=== PATIENT | male | born 1965 | race Caucasian/White ===

== ENCOUNTER → 2020-07-02 10:44 | Outpatient (BNVA) | payer OTHER, SELFPAY | PROVIDERS: Family Provider Family Medicine; PCP Family Medicine; Visit Provider Surgery | DX: K92.1 Melena (principal) | CPT/HCPCS: 87635 ==

== ENCOUNTER 2020-07-07 07:33 | Day surgery (SDC) | payer OTHER, SELFPAY ==
[2020-07-03 13:33] VITALS: BMI 36.0
--- NOTE | 2020-07-07 07:56 | ANES.PREANE2 ---
Pre-Anesthetic Assessment Pre-Anesthetic Assessment: Height/Weight: Height 1.78 m Weight 113.852 kg Proposed Procedure: Operation Date: 07/07/20 09:00 Proposed Procedures p Colonoscopy 41379 k92.1(Not Applicable) - Alfred Cantu MD Was Beta Simona taken within 24 hours: N/A Was Clonidine taken within 24 hours: N/A Social: Social History: No alcohol and No tobacco Exam: Pre-Anes Outpt Exam: alert, oriented x 3, clear to auscultation bilaterally and regular rate & rhythm Airway: Submandibular: WNL Cervical ROM: WNL MP: 2 History/ROS: No significant history except as noted Pulmonary: Pulmonary: Sleep apnea CV/HEM: CV/HEM: None reported : : None reported Hepatic: Hepatic: None reported GI: GI: None reported Metabolic: Metabolic: None reported Musc/skel: Musc/skel: None reported Neuropsych: Neuropsych: None reported Anesthetic Plan: ASA status: 2 Anesthesia: MAC PFSH Anesthesia PFSH: Medical History (Updated 06/19/20 @ 09:33 by Alfred Cantu MD) Hyperlipidemia Hypertension STEPHANIE (obstructive sleep apnea) Surgical History (Updated 06/19/20 @ 09:33 by Alfred Cantu MD) History of appendectomy 1984 History of hand surgery History of right inguinal hernia repair 2014 History of surgery on arm History of umbilical hernia repair Family History (Updated 06/19/20 @ 09:00 by Erika Stout) Mother Cancer Father Stroke Social History (Updated 06/19/20 @ 09:01 by Erika Stout) Smoking and tobacco status: never smoked Second hand smoke exposure: No Alcohol intake: never Lives independently: Yes Household members: spouse Data Anesthesia Cardiac Studies: No Data to Display
[2020-07-07 08:23] VITALS: BP 130/80; PULSE 79; RESP 18; TEMP 36.1; O2SAT 97
[2020-07-07] MEDS: sodium chloride 0.9% 1,000 ML 30 ML IV (08:38)
--- NOTE | 2020-07-07 09:04 | W.PM.OPSUD ---
Surgery/Procedure H&P Update DATE OF PROCEDURE: July 07, 2020 DATE H&P PERFORMED: 06/19/20 H&P UPDATE INFORMATION: I have reviewed H&P completed within last 30 days, I have examined patient prior to procedure and No changes to prior documentation PREOP DIAGNOSIS: diagnostic PLANNED PROCEDURE: Operation Date: 07/07/20 09:00 Proposed Procedures p Colonoscopy 85470 k92.1(Not Applicable) - Alfred Cantu MD
[2020-07-07 09:32] VITALS: BP 105/64; PULSE 77; RESP 16; TEMP 36.2; O2SAT 93
[2020-07-07 09:47] VITALS: BP 107/66; PULSE 72; RESP 16; TEMP 36.4; O2SAT 95
--- NOTE | 2020-07-07 11:37 | ANE.PACU2 ---
Inpatient post-anesthesia follow up: Airway intact: Yes Vital signs: Temperature 97.6 F Pulse Rate 72 Respiratory Rate 16 Blood Pressure 107/66 Pulse Oximetry 95 Oxygen Delivery Me thod Room Air Oxygen Flow Rate 2 Fraction of Inspir ed Oxygen Hydration adequate: Yes Nausea and vomiting: No Mental status: Baseline
--- NOTE | 2020-07-07 13:46 | ANE.PACU2 ---
Inpatient post-anesthesia follow up: Airway intact: Yes Vital signs: Temperature 97.6 F Pulse Rate 72 Respiratory Rate 16 Blood Pressure 107/66 Pulse Oximetry 95 Oxygen Delivery Me thod Room Air Oxygen Flow Rate 2 Fraction of Inspir ed Oxygen Hydration adequate: Yes Nausea and vomiting: No Pain level: 1 Mental status: Baseline
== END 2020-07-07 10:00 | disposition home or self-care (01) ==
PROVIDERS: PCP Family Medicine; Visit Provider Surgery
PROC: 0DJD8ZZ Inspection of Lower Intestinal Tract, Via Natural or Artificial Opening Endoscopic (ICD-10-PCS; CPT 45378; principal; 2020-07-07 09:00)
DX: K92.1 Melena (principal); K64.8 Other hemorrhoids; E78.5 Hyperlipidemia, unspecified; I10 Essential (primary) hypertension; G47.33 Obstructive sleep apnea (adult) (pediatric)
CPT/HCPCS: 45378; 96360; J2704; J7030

== ENCOUNTER → 2021-03-01 08:39 | Outpatient (BNVA) | payer OTHER, SELFPAY | PROVIDERS: PCP Family Medicine; Visit Provider Urology | DX: N50.819 Testicular pain, unspecified (principal) | CPT/HCPCS: 81003 ==

== ENCOUNTER → 2023-03-13 16:43 | Outpatient (BNVA) | payer OTHER, SELFPAY | PROVIDERS: PCP Family Medicine; Visit Provider Emergency Medicine | DX: M25.511 Pain in right shoulder (principal) | CPT/HCPCS: 73030 ==

== ENCOUNTER 2024-05-06 07:45 | Outpatient (CLI) | payer OTHER, SELFPAY ==
--- NOTE | 2024-05-06 07:50 | MM_ITS ---
WS: [id number] DIAGNOSTIC BILATERAL DIGITAL BREAST TOMOSYNTHESIS MAMMOGRAPHY WITH CAD LEFT breast ultrasound, limited HISTORY: MASS LEFT BREAST, male patient. COMPARISON: None available. TECHNIQUE: Bilateral craniocaudad, mediolateral oblique, and mediolateral views are submitted with tomosynthesis and SM. Spot compression LEFT CC and MLO. Computer aided detection utilized. Breast composition: The breasts are almost entirely fatty. Round, indistinct slightly high density mass present at 12:00 at a middle to posterior depth in the LEFT breast. Mass measures 8 x 10 x 12 mm. There is no calcification or distortion. As per history this mass has been present for 10 years. No additional abnormality within either breast. LEFT breast ultrasound, limited LEFT breast at 11:00, 2 cm from the nipple is the palpable abnormality which is hyperechoic with a central cystic area. Mass measures 1.5 x 1.5 x 0.8 cm. No shadowing or calcification. There is slight increased vascularity. MM/MM diag BI tomosynthesis [id number] IMPRESSION: BI-RADS: 4 - Suspicious Finding - Biopsy Should Be Considered. FOLLOW UP: Biopsy Recommended 1. Palpable LEFT breast mass is suspected to be a lipoma or an area of fat nec rosis based upon its appearance. As this mass is now painful and patient report s a change suggest ultrasound-guided biopsy to confirm malignancy or surgical e xcision.
== END 2024-05-06 07:46 | disposition home or self-care (01) ==
LOC: RAD 07:46
PROVIDERS: PCP Family Medicine; Visit Provider Family Medicine
DX: N63.20 Unspecified lump in the left breast, unspecified quadrant (principal); R92.312 Mammographic fatty tissue density, left breast; N63.25 Unspecified lump in the left breast, overlapping quadrants; N63.22 Unspecified lump in the left breast, upper inner quadrant
CPT/HCPCS: 76642; 77062; G0279

== ENCOUNTER 2024-06-05 12:08 | Outpatient (CLI) | payer OTHER, SELFPAY ==
--- NOTE | 2024-06-05 12:14 | US_ITS ---
WS: [id number] ULTRASOUND-GUIDED LEFT BREAST BIOPSY HISTORY: 59-year-old male, LEFT breast mass enlarging and painful. COMPARISON: 05/06/2024 Procedure, risks and complications are explained to the patient. Medications are reviewed. Consent is obtained. The mass in the LEFT breast is localized with ultrasound. Mass localized cyst at 11:00, 2 cm from the nipple. Skin is cleansed with ChloraPrep and anesthetized with 1% buffered lidocaine. Small dermatome is made. Under sterile conditions mass is biopsied with a 14-gauge Achieve needle. Multiple core biopsies are performed. Material placed in formalin and sent to pathology for review. No complications encountered. Breast tissue marker ([employer] ultrasound enhanced ribbon): Single. Patient left the radiology suite with no complications. Patient is instructed [place] [facility] [place] call with any concerns. US/[place] [id number] IMPRESSION: 1. Uncomplicated core needle biopsy LEFT breast mass at 11:00. PATHOLOGY: Pathology findings are most consistent with an angiolipoma. Please s ee the pathologist report. Focal fat necrosis is also present. RECOMMENDATION: Angiolipomas of the breasts are rare benign, noncancerous lesio ns. If this mass continues to cause pain and appears to increase in size surgic al excision can be obtained. Recommendation: Diagnostic LEFT mammogram in 6 months and possible ultrasound.
== END 2024-06-05 12:09 | disposition home or self-care (01) ==
LOC: RAD 12:10
PROVIDERS: PCP Family Medicine; Visit Provider Family Medicine
DX: N63.22 Unspecified lump in the left breast, upper inner quadrant (principal); R92.8 Other abnormal and inconclusive findings on diagnostic imaging of breast; N64.1 Fat necrosis of breast
CPT/HCPCS: 19083; 88305; J9999

== ENCOUNTER 2024-08-27 12:49 | Outpatient (CLI) | payer OTHER, SELFPAY ==
--- NOTE | 2024-08-27 12:45 | US_ITS ---
WS: [id number] ULTRASOUND RIGHT BREAST HISTORY: RIGHT breast mass. Prior biopsy. COMPARISON: 06/05/2024, 05/06/2024 TECHNIQUE: 2-D and Doppler. Hyperechoic mass is identified in the anterior RIGHT breast, 1 cm from the nipple. This is a hyperechoic mass that has undergone prior biopsy. There are 2 adjacent similar masses better noted on today's exam. The larger mass measures 1.2 x 1.6 x 1.0 cm. No increase in size. US/US breast RT limited* [id number] IMPRESSION: BI-RADS: 2- Benign FOLLOW-UP: See Report Hypoechoic mass has been previously biopsied. No additional imaging necessary. Surgical excision if mass is causing pain.
== END 2024-08-27 12:50 | disposition home or self-care (01) ==
LOC: RAD 12:52
PROVIDERS: PCP Family Medicine; Visit Provider Surgery
DX: L02.91 Cutaneous abscess, unspecified (principal); D17.9 Benign lipomatous neoplasm, unspecified; N63.10 Unspecified lump in the right breast, unspecified quadrant
CPT/HCPCS: 76642

== ENCOUNTER 2024-09-23 09:11 | Day surgery (SDC) | payer OTHER, SELFPAY ==
[2024-09-23] VITALS (11 sets, daily range): BP systolic 103–149; BP diastolic 65–102; PULSE 68–82; RESP 10–22; TEMP 36.3–36.8; O2SAT 93–100; BMI 33.7
[2024-09-23] MEDS: sodium chloride 0.9% 1,000 ML 30 ML IV (10:07)
--- NOTE | 2024-09-23 10:37 | ANES.PREANE2 ---
Pre-Anesthetic Assessment Height/Weight: Height 5 ft 10 in Weight 235 lb Temp Pulse Resp BP Pulse Ox O2 Del Method 97.3 F L 76 16 139/100 96 Room Air 09/23/24 09:40 09/23/24 09:40 09/23/24 09:40 09/23/24 09:40 09/23/24 09:40 09/23/24 09:40 Preop Diagnosis: Chest wall mass Operation Date: 09/23/24 11:25 Proposed Procedures p BILATERAL Excision subcutaneous Lesion on Chest(Bilateral) - Alex Mayfield MD Was Beta Simona taken within 24 hours: N/A Was Clonidine taken within 24 hours: N/A Last intake: Intake Last Liquid Date 09/22/24 Last Liquid Time 22:30 Last Solid Date 09/22/24 Last Solid Time 22:30 Social No alcohol and No tobacco Exam alert, oriented x 3, clear to auscultation bilaterally and regular rate & rhythm Airway Submandibular: within normal limits Cervical ROM: within normal limits Mallampati: Class III Comments: Comments: Very poor dentition, multiple missing teeth. Denies any loose. Large stover Anesthetic Plan ASA status: 3 Anesthesia: General Other: Patient states that he is very sensitive to anesthesia. Multiple procedures where he had difficulty breathing following anesthesia due to being too sleepy NPO since yesterday evening History of STEPHANIE, wears CPAP at home Patient takes tirzepatide for weight loss. States that he has lost over 30 pounds Denies any cardiac issues, preop BP 139/100 METs greater than 4 Plan for general anesthesia Medications/Allergies Home Medications ?Medication ?Instructions ?Recorded ?Confirmed ?Last Taken ?Type tirzepatide 2.5 mg/0.5 mL 2 mg SUBCUT Q7D 08/13/24 09/19/24 09/13/24 History subcutaneous pen injector (Mounjaro) Allergies Allergy/AdvReac Type Severity Reaction Status Date / Time No Known Allergies Allergy Verified 09/19/24 11:54 Current Medications Generic Name Dose Route Start Last Admin Trade Name Freq PRN Reason Stop Dose Admin Sodium Chloride 1,000 mls @ 30 mls/hr 09/23/24 09:45 09/23/24 10:07 Sodium Chloride 0.9% IV 09/24/24 09:44 30 mls/hr .Q24H QUYNH Administration PFSH Anesthesia Medical History Testalgia Hydrocele STEPHANIE (obstructive sleep apnea) Hypertension Hyperlipidemia Surgical History Status post colonoscopy (07/07/20) hemorrhoids: 10 years History of umbilical hernia repair History of surgery on arm History of appendectomy 1985 History of hand surgery History of right inguinal hernia repair 2014 Family History Mother Cancer Father Stroke Social History Smoking and tobacco/nicotine status: never used tobacco/nicotine Second hand smoke exposure: No Alcohol intake: never Substance/Drug Use: never Lives independently: Yes Household members: spouse
--- NOTE | 2024-09-23 11:27 | W.PM.OPSUD ---
Surgery/Procedure H&P Update DATE OF PROCEDURE: September 23, 2024 DATE H&P PERFORMED: 09/17/24 H&P UPDATE INFORMATION: I have reviewed H&P completed within last 30 days, I have examined patient prior to procedure, No changes to prior documentation, H&P is in [facility] EMR on date indicated and Risks and benefits of the procedure reviewed PREOP DIAGNOSIS: Chest wall mass PLANNED PROCEDURE: Operation Date: 09/23/24 11:25 Proposed Procedures p BILATERAL Excision subcutaneous Lesion on Chest(Bilateral) - Alex Mayfield MD
[2024-09-23] MEDS: ceFAZolin 2,000 mg SDV 2000 MG IVP (12:50)
[2024-09-23] MEDS: BUPivacaine 0.25% INJ 30 mL INJECTION (13:13)
[2024-09-23] MEDS: lidocaine-epi 1% 20 mL INJ INJECTION (13:14)
--- NOTE | 2024-09-23 13:15 | P.OP_ITS ---
Operative Report Date of procedure: September 23, 2024 Pre-op diagnosis: Bilateral chest subcutaneous lesion Post-op diagnosis: Same Post-op findings: There were 2 subcutaneous lesion of bilateral chest on the left side in the inner upper quadrant of the left breast area about 4 cm from the nipple. This wound measured about 1 x 1 cm. And on the right breast on the outer upper quadrant about 1 cm from the nipple measuring about 1 x 1 cm. Procedure done: Excision of subcutaneous mass of bilateral chest (breast) Specimens removed/disposition: Left chest mass, right chest mass Surgeon: Alex Mayfield MD Metal Casket Maker: [facility] OR Staff Estimated blood loss: 5 Complications: none apparent Brief History: 59-year-old male with history of bilateral breast lesions per ultrasound appear benign. I was asked to proceed with excision as lesions are painful. After discussion risk benefits documented. Note with side to proceed. Procedure: Patient was brought into the OR, he was placed in a supine position. General anesthesia was given. The chest was prepped and draped in usual sterile fashion and a timeout was conducted. On the areas previously marked I then proceeded to with additional markings on the left and right breast. I then started on the left breast, identified to javier area make a 2 cm incision that was deepened into the subcutaneous tissue I then identified lipomatous lesion that was circumferentially dissected and removed from the subcutaneous tissue using electrocautery. Specimen was passed, hemostasis was achieved. The wound was irrigated and local anesthesia was infiltrated. The wound was closed in layers using #3-0 Vicryl for the subcutaneous tissue #4-0 Monocryl for the skin. I then placed my attention to the right breast. identified to javier area make a 2 cm incision that was deepened into the subcutaneous tissue I then identified lipomatous lesion that was circumferentially dissected and removed from the subcutaneous tissue using electrocautery. Specimen was passed, hemostasis was achieved. The wound was irrigated and local anesthesia was infiltrated. The wound was closed in layers using #3-0 Vicryl for the subcutaneous tissue #4-0 Monocryl for the skin. Dermabond was applied on both wounds. At the end of the procedure all counts were correct the patient tolerated well the procedure was transferred to PACU in stable condition
--- NOTE | 2024-09-23 14:45 | ANE.PACU2 ---
Inpatient post-anesthesia follow up: Airway intact: Yes Vital signs: Temperature 97.8 F Pulse Rate 82 Respiratory Rate 16 Blood Pressure 141/86 Pulse Oximetry 97 Oxygen Delivery Me thod Room Air Oxygen Flow Rate 6 Fraction of Inspir ed Oxygen Hydration adequate: Yes Nausea and vomiting: No Pain level: 1 Mental status: Baseline
== END 2024-09-23 14:45 | disposition home or self-care (01) ==
PROVIDERS: PCP Family Medicine; Visit Provider Surgery
PROC: (CPT 11401; principal; 2024-09-23 11:15)
DX: D17.1 Benign lipomatous neoplasm of skin and subcutaneous tissue of trunk (principal); G47.33 Obstructive sleep apnea (adult) (pediatric); I10 Essential (primary) hypertension; E78.5 Hyperlipidemia, unspecified
CPT/HCPCS: 11401; 88307; J0690; J1100; J2405; J2704; J3010; J3490; J7030; J9999